=== PATIENT | male | born 1980 | race African-American/Black ===

== ENCOUNTER 2023-03-09 09:05 | Inpatient (IN) | payer MEDICARE, OTHER ==
[~2023-03-09] VITALS: Ht 188 cm; Wt 94.8 kg
[2023-03-09] MEDS ORDERED: DIPHENHYDR50 MG/1 M1 IV (09:40)
[2023-03-09] MEDS ORDERED: ONDANSETRON4 MG/2 ML IV (09:41)
[2023-03-09] MEDS ORDERED: HYDMOR4 PO (09:42)
[2023-03-09] MEDS ORDERED: Calphron667 MG PO (09:43)
[2023-03-09] MEDS ORDERED: NUMBCREAM38 GM TOP (09:43)
[2023-03-09 10:34] LABS: BASOPHILS ABSOLUTE AUTO 0.01 K/mm3 (0.00-0.23); BASOPHILS PERCENT AUTO 0 % (0-2); EOSINOPHILS ABSOLUTE AUTO 0.05 K/mm3 (0.00-0.68); EOSINOPHILS PERCENT AUTO 1 % (0-6); Hematocrit 46.1 % (37.0-53.0); Hemoglobin 14.2 g/dL (13.5-17.5); IMMATURE GRAN ABSOLUTE AUTO 0.01 K/mm3 (0.00-0.10); IMMATURE GRAN PERCENT AUTO 0 % (0-1); LYMPHOCYTES ABSOLUTE AUTO 1.06 K/mm3 (0.84-5.20); LYMPHOCYTES PERCENT AUTO 27 % (21-46); MONOCYTES ABSOLUTE AUTO 0.21 K/mm3 (0.16-1.47); MONOCYTES PERCENT AUTO 5 % (4-13); Mean Corpuscular HGB 22.6 pg (26.0-34.0); Mean Corpuscular HGB Conc 30.8 g/dL (31.5-36.5); Mean Corpuscular Volume 73 fL (80-100); NEUTROPHILS ABSOLUTE AUTO 2.55 K/mm3 (1.96-9.15); NEUTROPHILS PERCENT AUTO 66 % (41-73); Platelet Count 117 K/mm3 (150-400); RDW Coefficient Variation 18.9 % (11.7-14.2); RDW Standard Deviation 46.3 fL (35.1-46.3); Red Blood Cell Count 6.28 M/mm3 (4.30-5.90); White Blood Cell Count 3.89 K/mm3 (4.00-11.30)
[2023-03-09 11:51] LABS: International Normalized Ratio 1.04; Prothrombin Time Results 10.9 Sec (9.7-11.5)
[2023-03-09 12:26] LABS: Magnesium, Blood 2.8 mg/dL (1.6-2.4)
[2023-03-09 13:03] LABS: Albumin/Globulin Ratio 1.2 (0.8-1.8); Bilirubin, Total 0.6 mg/dL (0.1-1.0); Calcium, Blood 7.1 mg/dL (8.5-10.1); Creatinine, Blood 17.6 mg/dL (0.60-1.20); Globulin, Blood 3.4 g/dL (2.2-4.0); Phosphorus, Blood 10.5 mg/dL (2.5-4.9); Potassium, Blood 4.8 mmol/L (3.5-5.5); Total Protein, Blood 7.4 g/dL (6.4-8.2)
[2023-03-09 17:30] VITALS: BP 118/80
[2023-03-09] MEDS ORDERED: TOUJEO MAX300 UNIT/2 SC (17:41)
--- NOTE | 2023-03-09 18:53 | NUR ---
PT ARRIVED TO THE UNIT VIA WHEELCHAIR. ORIENTED TO THE ROOM, PROVIDED WATER AND CRACKERS, DINNER WAS ORDERED. AT BEDSIDE.
[2023-03-09 19:07] VITALS: BP 130/76
[2023-03-10] VITALS (24 sets, daily range): BP systolic 89–149; BP diastolic 70–101
--- NOTE | 2023-03-10 06:04 | NUR ---
SUMMARY: PT A/OX4, IS PLEASANT AND COOPERATIVE W/CARE AND CALLS APPROPRIATELY FOR ASSIST. HE'S UP INDEPENDENTLY IN ROOM AND USES URINAL AD BÁRBARA. PT APPEARS WITHDRAWN W/A FLAT AFFECT BUT HE ADMITTED TO HAVING ANXIETY AND FEAR RE: INABILITY TO HAVE DIALYSIS SINCE THURSDAY. HE REPORTS ABILITY TO FEEL THE EFFECTS AND KNOWLEGE OF "TOXINS ACCUMULATING" LEADING TO "STRESS AND WORRY". HE ALSO C/O URTICARIA, R.LEG PAIN FROM CLOTTED HD GRAFT AND DIFFICULTY SLEEPING. MADE AWARE W/PRN BENEDRYL AND PO DILAUDID RX'D AND RECIEVED. PT APPEARS TO HAVE CALMED SOME AND WAS OBSERVED RESTING OFF/ON. HE'S BEEN NPO SINCE [facility] FOR PROBABLE TEMP DIALYSIS CATH PLACEMENT AND T/F TO [facility] FOR POSSIBLE SURGICAL REVISION OF HIS R.FEMORAL GRAFT IS PENDING BED AVAILABILITY. NO ACUTE CHANGES, VSS/AFEBRILE. WCTM AND REPORT TO DAY RN.
[2023-03-10 07:48] LABS: BASOPHILS ABSOLUTE AUTO 0.01 K/mm3 (0.00-0.23); BASOPHILS PERCENT AUTO 0 % (0-2); EOSINOPHILS ABSOLUTE AUTO 0.07 K/mm3 (0.00-0.68); EOSINOPHILS PERCENT AUTO 1 % (0-6); Hematocrit 43.2 % (37.0-53.0); Hemoglobin 13.5 g/dL (13.5-17.5); IMMATURE GRAN ABSOLUTE AUTO 0.01 K/mm3 (0.00-0.10); IMMATURE GRAN PERCENT AUTO 0 % (0-1); LYMPHOCYTES ABSOLUTE AUTO 1.79 K/mm3 (0.84-5.20); LYMPHOCYTES PERCENT AUTO 32 % (21-46); MONOCYTES ABSOLUTE AUTO 0.43 K/mm3 (0.16-1.47); MONOCYTES PERCENT AUTO 8 % (4-13); Mean Corpuscular HGB 22.8 pg (26.0-34.0); Mean Corpuscular HGB Conc 31.3 g/dL (31.5-36.5); Mean Corpuscular Volume 73 fL (80-100); NEUTROPHILS ABSOLUTE AUTO 3.24 K/mm3 (1.96-9.15); NEUTROPHILS PERCENT AUTO 58 % (41-73); Platelet Count 121 K/mm3 (150-400); RDW Coefficient Variation 18.5 % (11.7-14.2); RDW Standard Deviation 45.5 fL (35.1-46.3); Red Blood Cell Count 5.93 M/mm3 (4.30-5.90); White Blood Cell Count 5.55 K/mm3 (4.00-11.30)
[2023-03-10 08:05] LABS: Albumin, Blood 3.5 g/dL (3.4-5.0); Albumin/Globulin Ratio 0.9 (0.8-1.8); Bilirubin, Total 0.6 mg/dL (0.1-1.0); Calcium, Blood 6.7 mg/dL (8.5-10.1); Potassium, Blood 5.3 mmol/L (3.5-5.5); Total Protein, Blood 7.5 g/dL (6.4-8.2)
[2023-03-10 08:08] LABS: Bun/Creatinine Ratio 3.1 (12.0-20.0); Creatinine, Blood 18.4 mg/dL (0.60-1.20)
--- NOTE | 2023-03-10 10:14 | NUR ---
ASSUMED CARE OF PT. PT TAKEN TO [facility] VIA HOSPITAL BED FOR SCHEDULED PROCEDURE. PT OUT OF ROOM.
--- NOTE | 2023-03-10 17:41 | NUR ---
PT A&O X4 AND CALLS APPROPRIATELY. PT RECEIVED A LEFT FEMORAL DIALYSIS CATHETER TODAY, AND RECEIVED DIALYSIS TREATMENT. NO ACUTE EVENTS AT THIS TIME. PT AND FAMILY INFORMED ME OF AN ALLERGY NOT ON DOCUMENTED LIST, ADDED TOMATOES TO ALLERGY LIST. VSS. PT LEFT IN A POSITION OF SAFETY.
[2023-03-11 03:10] VITALS: BP 122/83
--- NOTE | 2023-03-11 05:37 | NUR ---
SUMMARY: PT A/OX4, IS INDEPENDENT IN ROOM AND CALLS APPROPRIATELY TO SPECIFY NEEDS. TEMPORARY FEMORAL DIALYSIS CATH AND DX ARE INTACT TO L.[facility]. HE REPORTS FEELING "WIPED OUT BUT BETTER AFTER FINALLY RECIEVING DIALYSIS". BILAT LEG AND BACK PAIN PERSIST BUT PRN DILAUDID WAS RECIEVED FOR TOLERABLE RELIEF. HE C/O ITCHING AND DIFFICULTY SLEEPING WELL W/IV BENEDRYL PROVIDED FOR GOOD EFFECT. RENAL DIET COMMENCED AND NEXT DIALYSIS PLANNED FOR THURSDAY. NO ACUTE CHANGES, VSS/AFEBRILE. BED AVAILABILITY AT [facility] STILL PENDING. WCTM AND REPORT TO DAY RN.
[2023-03-11 06:04] LABS: BASOPHILS ABSOLUTE AUTO 0.01 K/mm3 (0.00-0.23); BASOPHILS PERCENT AUTO 0 % (0-2); EOSINOPHILS ABSOLUTE AUTO 0.05 K/mm3 (0.00-0.68); EOSINOPHILS PERCENT AUTO 1 % (0-6); Hematocrit 40.9 % (37.0-53.0); Hemoglobin 12.8 g/dL (13.5-17.5); IMMATURE GRAN ABSOLUTE AUTO 0.01 K/mm3 (0.00-0.10); IMMATURE GRAN PERCENT AUTO 0 % (0-1); LYMPHOCYTES ABSOLUTE AUTO 0.95 K/mm3 (0.84-5.20); LYMPHOCYTES PERCENT AUTO 26 % (21-46); MONOCYTES ABSOLUTE AUTO 0.26 K/mm3 (0.16-1.47); MONOCYTES PERCENT AUTO 7 % (4-13); Mean Corpuscular HGB 22.4 pg (26.0-34.0); Mean Corpuscular HGB Conc 31.3 g/dL (31.5-36.5); Mean Corpuscular Volume 72 fL (80-100); NEUTROPHILS ABSOLUTE AUTO 2.41 K/mm3 (1.96-9.15); NEUTROPHILS PERCENT AUTO 65 % (41-73); Platelet Count 112 K/mm3 (150-400); RDW Coefficient Variation 17.6 % (11.7-14.2); RDW Standard Deviation 43.3 fL (35.1-46.3); Red Blood Cell Count 5.71 M/mm3 (4.30-5.90); White Blood Cell Count 3.69 K/mm3 (4.00-11.30)
[2023-03-11 07:09] LABS: Albumin, Blood 3.3 g/dL (3.4-5.0); Albumin/Globulin Ratio 0.9 (0.8-1.8); Bilirubin, Total 0.5 mg/dL (0.1-1.0); Bun/Creatinine Ratio 2.7 (12.0-20.0); Creatinine, Blood 15.4 mg/dL (0.60-1.20); Globulin, Blood 3.8 g/dL (2.2-4.0); Potassium, Blood 4.3 mmol/L (3.5-5.5); Total Protein, Blood 7.1 g/dL (6.4-8.2)
[2023-03-11 07:50] VITALS: BP 120/84
[2023-03-11 15:54] VITALS: BP 127/89
--- NOTE | 2023-03-11 17:36 | NUR ---
SHIFT SUMMARY PT IN BED THROUGH THE DAY IN [place] POSITION TO EAT AND WATCH TV. DRESSING INTACT TO L GROIN CATHETER. MEDICATED FOR PAIN THIS EVENING AND BENEDRYL GIVEN FOR ANXIETY. AWAITING BED AT [facility] FOR [facility]BRA TRANSFER TO HAVE RLE GRAFT DECLOTTED.
[2023-03-11 19:33] VITALS: BP 123/75
[2023-03-12] VITALS (16 sets, daily range): BP systolic 112–161; BP diastolic 31–94
--- NOTE | 2023-03-12 04:20 | NUR ---
SHIFT SUMMARY NO ACUTE CHANGES. PT A&O X3-4. PT IS ABLE TO MAKE HIS NEEDS KNOWN AND CALLS APPROPRIATELY. NO C/O PAIN AT THIS TIME. PT C/O ANXIETY-MEDICATED X2 THIS SHIFT PER EMAR. CHARGED PT PHONE AND TABLET. DENIES CHEST PAIN/PRESSURE/TIGHTNESS. BED IS LOCKED IN THE LOWEST POSITION WITH CALL LIGHT IN REACH. NO S/S OF DISTRESS NOTED.
[2023-03-12 06:24] LABS: Albumin, Blood 3.2 g/dL (3.4-5.0); Anion Gap 13 mmol/L (6-16); Blood Urea Nitrogen 49 mg/dL (8-24); Bun/Creatinine Ratio 2.7 (12.0-20.0); CO2, Blood 25 mmol/L (21-32); Calcium, Blood 6.6 mg/dL (8.5-10.1); Chloride, Blood 105 mmol/L (98-108); Glomerular Filtration Rate 3 (60-); Glucose, Blood 188 mg/dL (70-99); Phosphorus, Blood 10.5 mg/dL (2.5-4.9); Potassium, Blood 4.4 mmol/L (3.5-5.5); Sodium, Blood 143 mmol/L (136-145)
--- NOTE | 2023-03-12 11:12 | NUR ---
DIALYSIS PORT IN [facility] IS INTACT. CLEAR OCCLUSIVE DRESSING INTACT & APPEARS CLEAN. PT IS COMPLIANT WITH KEEPING LEG STRAIGHT.
--- NOTE | 2023-03-12 13:10 | NUR ---
RETURN FROM DIALYSIS PT RETURNED FROM DIALYSIS VIA BED TRANSFER AT 1255. SET UP FOR LUNCH, BG 70. MEDS GIVEN AND ENCOURAGED PT TO EAT. PT IS EATING CRACKERS FROM HOME AND STARTED ON LUNCH TRAY. AT BEDSIDE. PT REQUESTED DR. FREEMAN TO COME S/W HIS . PLACED CALL TO DR. FREEMAN. HERE.
--- NOTE | 2023-03-12 13:57 | NUR ---
RECEHCKED BG AFTER LUNCH. BG BACK UP TO 180.
--- NOTE | 2023-03-12 18:40 | NUR ---
SHIFT SUMMARY A&O X 4, VSS. IS PLEASANT & COOPERATIVE WITH ALL CARE. REBEKAH DIALYSIS WELL THIS AM. MEDICATED FOR C/O PAIN PER EMAR WITH GOOD RELIEF STATED BY PT. BENADRYL GIVEN PER EMAR UPON PT REQUEST. APPETITE IS OK. BLOOD SUGARS COVERED PER INSULIN COVERGAE ORDERS. L GROIN DIALYSIS CATHETER C/D/I. PT KEEPING LEG STRAIGHT. FAMILY IN TO VISIT TODAY. PLAN IS FOR TRANSFER TO FACILITY FOR VASCULAR REOPENING OF R LEG DIALYSIS [facility].
--- NOTE | 2023-03-12 22:23 | NUR ---
LUIS TRANSFER CALLED [facility] CALLED FOR AN UPDATE ABOUT POSSIBLE BED AT [facility] IN [place]-CURRENTLY OVER CAPACITY BUT THEY WILL BE REASSESSING IN THE MORNING AND SHOULD CALL BACK WITH UPDATE 02/10/23 SOMETIME AFTER 0900.
--- NOTE | 2023-03-13 04:38 | NUR ---
SHIFT SUMMARY NO ACUTE CHANGES THIS SHIFT. PATIENT IS OF WITHDRAWN AFFECT. CALLS APPROPRIATELY AND IS ABLE TO MAKE HIS NEEDS KNOWN. PATIENT IS PLEASANT AND COOPERATIVE WITH CARE PROVIDED. PATIENT HAD HALF A SANDWHICH FOR A SNACK LAST NIGHT. LEÓN C/O PAIN-PAIN ASSESSED AND MEDICATER PER EMAR. LEÓN REQUESTED BENADRYL FOR ANXIETY-MEDICATED PER EMAR. BED IS LOCKED IN THE LOWEST POSITION WITH CALL LIGHT IN REACH FOR SAFETY. NO S/S OF DISTRESS NOTED AT THIS TIME.
[2023-03-13 05:32] VITALS: BP 122/85
[2023-03-13 06:27] LABS: Albumin, Blood 3.2 g/dL (3.4-5.0); Anion Gap 9 mmol/L (6-16); Blood Urea Nitrogen 33 mg/dL (8-24); CO2, Blood 28 mmol/L (21-32); Calcium, Blood 6.8 mg/dL (8.5-10.1); Chloride, Blood 104 mmol/L (98-108); Glucose, Blood 142 mg/dL (70-99); Potassium, Blood 4.7 mmol/L (3.5-5.5); Sodium, Blood 141 mmol/L (136-145)
[2023-03-13 06:29] LABS: Bun/Creatinine Ratio 2.2 (12.0-20.0); Glomerular Filtration Rate 4 (60-); Phosphorus, Blood 8.7 mg/dL (2.5-4.9)
[2023-03-13 07:26] VITALS: BP 125/88
[2023-03-13 16:14] VITALS: BP 119/80
[2023-03-13 17:58] VITALS: BP 119/80
--- NOTE | 2023-03-13 18:23 | NUR ---
SHIFT SUMMARY PATIENT ALERT AND INTERACTIVE. MORE TALKATIVE AND SOCIAL WHEN HIS IS PRESENT. PATIENT TO GO TO [place] TO HAVE FEMORAL DIALYSIS GRAFT DECLOTTED. REPORT CALLED TO BEATRIZ WASHBURN. Marcel FEMORAL VAS CATH IN PLACE. PATIENT BATHED BY . DRESSING REMOVED FROM NECK WHERE AN ATTEMPT TO PLACE AN IJ PREVIOUSLY. NOTIFIED OF TRANSFER IN PROGRESS. PATIENT WELL EDUCATED ON UPCOMING PROCEDURES AND PROCESS. PATIENT EAGER TO GET ACCESS OBTAINED AND RETURN TO PREVIOUS ACTIVITY LEVEL.
[2023-03-13 19:54] VITALS: BP 129/88
--- NOTE | 2023-03-13 21:12 | NUR ---
PATIENT TRANSFERED. PATIENT TRANSFERED WITH [facility] TO [facility] IN [place] VIA GURNEY. CALLED NURSE AT [facility] AND NOTIFIED PATIENT HAS LEFT [facility] AND IS IN TRANSIT TO THEM.
== END 2023-03-13 21:00 | disposition short-term general hospital (02) | DRG 314 ==
LOC: ER 09:05 → MEDS 09:06
PROVIDERS: Emergency Medicine; Family Medicine; Hospitalist; ADMIT Internal Medicine
PROC: B51 Imaging, Veins, Fluoroscopy (ICD-10-PCS; 2023-03-09)
PROC: 5A1D70Z Performance of Urinary Filtration, Intermittent, Less than 6 Hours Per Day (ICD-10-PCS; principal; 2023-03-10)
PROC: 06H033Z Insertion of Infusion Device into Inferior Vena Cava, Percutaneous Approach (ICD-10-PCS; 2023-03-10)
PROC: B549ZZA Ultrasonography of Inferior Vena Cava, Guidance (ICD-10-PCS; 2023-03-10)
DX: T82.868A Thrombosis due to vascular prosthetic devices, implants and grafts, initial encounter (principal); N18.6 End stage renal disease; I12.0 Hypertensive chronic kidney disease with stage 5 chronic kidney disease or end stage renal disease; Y83.8 Other surgical procedures as the cause of abnormal reaction of the patient, or of later complication, without mention of misadventure at the time of the procedure; E83.39 Other disorders of phosphorus metabolism; E10.649 Type 1 diabetes mellitus with hypoglycemia without coma; F41.9 Anxiety disorder, unspecified; G89.29 Other chronic pain; E10.22 Type 1 diabetes mellitus with diabetic chronic kidney disease; F31.9 Bipolar disorder, unspecified; D50.9 Iron deficiency anemia, unspecified; D63.1 Anemia in chronic kidney disease; Z88.5 Allergy status to narcotic agent; Z88.8 Allergy status to other drugs, medicaments and biological substances; Z99.2 Dependence on renal dialysis
CPT/HCPCS: 36415; 76882; 76937; 80053; 80069; 82947; 83036; 83735; 84100; 85025; 85610; 93990; 96374; 96376; 99152; 99153; 99284-25; A9270; C1750; C1769; C1887; C1894; G0378; J1200; J1644; J1815; J2250; J3010; J7030; J7040; Q9967

== ENCOUNTER 2023-06-03 09:13 | Day surgery (SDC) | payer MEDICARE, OTHER ==
[2023-06-03] VITALS (9 sets, daily range): BP systolic 144–182; BP diastolic 87–128
[~2023-06-03] VITALS: Ht 188 cm; Wt 93.0 kg
[~2023-06-03 09:13] MED LIST: Calphron667 MG PO; DIPHENHYDR50 MG/1 M1 IV; HYDMOR4 PO; NUMBCREAM38 GM TOP; ONDANSETRON4 MG/2 ML IV; TOUJEO MAX300 UNIT/2 SC
--- NOTE | 2023-06-03 14:53 | NUR ---
CBG RECHECK OF 114. PT. D5 INFUSION PLACED ON STAND BY PER DR. VITAL. PT REMAINS, SLEEPING IN SUPINE POSITION. AWAKENS TO VERBAL STIMULI. VSS AT THIS TIME.
[2023-06-03 15:28] LABS: Bun/Creatinine Ratio 3.7 (12.0-20.0); Calcium, Blood 5.7 mg/dL (8.5-10.1); Creatinine, Blood 18.7 mg/dL (0.60-1.20)
--- NOTE | 2023-06-03 15:30 | NUR ---
PT ASSISTED TO SIT UP IN BED, SITE REMAINS UNCHANGED, AWAITING LAB RESULTS.
--- NOTE | 2023-06-03 15:35 | NUR ---
LAB CALLED TO RESULT CRICAL LAB VALUES, DR. KITCHEN NOTIFIED OF CRITICAL LABS. SRINATH CALLED TO ASK FOR STAT CHAIR FOR PATIENT FOR DIALSYIS SEAN. DR. KITCHEN SPOKE WITH [facility] NURSE, CHAIR READY FOR PATIENT AND IF COMPLICATIONS WITH ACCESS DR. KITCHEN TO ASSIST WITH ACCESS SO PT COULD RECIEVE DIALYSIS SEAN. PT. IV REMOVED, CATHETER INTACT. PT. ASSISTED TO GET DRESSED SITE REMAINS UNCHANGED. PT ALERT AND ORIENTED, PROVIDED WITH SNACKS, AND ASSISTED TO EXIT, PT TO DRIVE PT TO DIALYSIS AT THIS TIME. PT VSS PRIOR TO DEPARTURE. DISCHARGE INSTRUCTIONS REGARDING SUTURE REMOVAL DISCUSSE WITH PT AND PT .
== END 2023-06-03 16:23 | disposition home or self-care (01) ==
LOC: MHTC 09:13
PROVIDERS: Radiology Diagnostic Radiology
DX: T82.590A Other mechanical complication of surgically created arteriovenous fistula, initial encounter (principal); I12.0 Hypertensive chronic kidney disease with stage 5 chronic kidney disease or end stage renal disease; N18.6 End stage renal disease; G47.33 Obstructive sleep apnea (adult) (pediatric); N25.81 Secondary hyperparathyroidism of renal origin; F17.210 Nicotine dependence, cigarettes, uncomplicated; Z88.8 Allergy status to other drugs, medicaments and biological substances; Z99.2 Dependence on renal dialysis; Z99.89 Dependence on other enabling machines and devices; Z98.890 Other specified postprocedural states; Z90.89 Acquired absence of other organs; Y83.8 Other surgical procedures as the cause of abnormal reaction of the patient, or of later complication, without mention of misadventure at the time of the procedure
CPT/HCPCS: 76937; 80048; 82947; 85347; 99152; 99153; C1725; C1757; C1769; C1887; C1894; J1644; J2250; J3010; J7030; J7042; Q9967

== ENCOUNTER 2023-06-05 16:33 | Inpatient (IN) | payer MEDICARE, OTHER ==
[~2023-06-05] VITALS: Ht 188 cm; Wt 100.4 kg
[2023-06-05 17:58] LABS: BASOPHILS ABSOLUTE AUTO 0.01 K/mm3 (0.00-0.23); BASOPHILS PERCENT AUTO 0 % (0-2); EOSINOPHILS ABSOLUTE AUTO 0.09 K/mm3 (0.00-0.68); EOSINOPHILS PERCENT AUTO 2 % (0-6); Hematocrit 43.3 % (37.0-53.0); IMMATURE GRAN ABSOLUTE AUTO 0.01 K/mm3 (0.00-0.10); IMMATURE GRAN PERCENT AUTO 0 % (0-1); LYMPHOCYTES ABSOLUTE AUTO 0.75 K/mm3 (0.84-5.20); LYMPHOCYTES PERCENT AUTO 15 % (21-46); MONOCYTES ABSOLUTE AUTO 0.27 K/mm3 (0.16-1.47); MONOCYTES PERCENT AUTO 6 % (4-13); Mean Corpuscular HGB 24.7 pg (26.0-34.0); Mean Corpuscular HGB Conc 32.3 g/dL (31.5-36.5); Mean Corpuscular Volume 76 fL (80-100); NEUTROPHILS ABSOLUTE AUTO 3.79 K/mm3 (1.96-9.15); NEUTROPHILS PERCENT AUTO 77 % (41-73); Platelet Count 96 K/mm3 (150-400); RDW Coefficient Variation 18.6 % (11.7-14.2); RDW Standard Deviation 50.1 fL (35.1-46.3); Red Blood Cell Count 5.67 M/mm3 (4.30-5.90); White Blood Cell Count 4.92 K/mm3 (4.00-11.30)
[2023-06-05 18:29] LABS: Albumin, Blood 3.3 g/dL (3.4-5.0); Albumin/Globulin Ratio 0.8 (0.8-1.8); Bilirubin, Total 0.6 mg/dL (0.1-1.0); Bun/Creatinine Ratio 2.8 (12.0-20.0); Calcium, Blood 6.1 mg/dL (8.5-10.1); Creatinine, Blood 16.6 mg/dL (0.60-1.20); Globulin, Blood 4.1 g/dL (2.2-4.0); Potassium, Blood 5.9 mmol/L (3.5-5.5); Total Protein, Blood 7.4 g/dL (6.4-8.2)
[2023-06-05 20:44] LABS: International Normalized Ratio 1.04; Prothrombin Time Results 10.9 Sec (9.7-11.5)
[2023-06-05] MEDS ORDERED: Sodium Zirconium Cyclosilicate 10 GM Packet PO ONE (21:20)
[2023-06-05] MEDS ORDERED: Ondansetron HCl 2 MG / ML 2ML Vial IV PRN (22:35)
[2023-06-05] MEDS ORDERED: FLU VACC QS2023-24(6MOS UP)/PF 60 MCG/0.5 ML SYRINGE IM ONE (22:35)
[2023-06-05 22:43] LABS: Magnesium, Blood 2.2 mg/dL (1.6-2.4)
[2023-06-05] MEDS ORDERED: Heparin Sodium,Porcine 5,000 UNIT/0.5 ML SDV SC SCH (23:00)
[2023-06-06] VITALS (8 sets, daily range): BP systolic 149–166; BP diastolic 95–109
--- NOTE | 2023-06-06 01:34 | NUR ---
TRANSFER NOTE THIS RN RECEIVED REPORT FROM MIMA RN IN THE ED. PT TRANSFERRED TO PCU 7 AT 0115. PT A&O X4. ABLE TO MAKE NEEDS KNOWN. HTN NOTED. AFEBRILE. ON RA WITH SPO2 >92%. SB/SR ON MONITOR WITH HR 50-60'S. PT IND WALKING IN ROOM AND WITH ADL'S. STATES THAT HE DOES NOT VOID. LAST DIALYSIS ON THURSDAY PER PT. RT THIGH DIALYSIS SITE WITH X2 SUTURES IN PLACE. LUCINA. HOME PAIN MEDICATION ORDERED PER MD MILLER. BED IN LOWEST POSITION AND CALL LIGHT WITHIN REACH.
[2023-06-06] MEDS ORDERED: HYDROmorphone HCl 4 MG Tab PO PRN (01:40)
[2023-06-06] MEDS ORDERED: Melatonin 5 MG Tablet PO PRN (01:40)
[2023-06-06 04:05] LABS: BASOPHILS ABSOLUTE AUTO 0.01 K/mm3 (0.00-0.23); BASOPHILS PERCENT AUTO 0 % (0-2); EOSINOPHILS ABSOLUTE AUTO 0.09 K/mm3 (0.00-0.68); EOSINOPHILS PERCENT AUTO 2 % (0-6); Hematocrit 38.5 % (37.0-53.0); Hemoglobin 12.5 g/dL (13.5-17.5); IMMATURE GRAN PERCENT AUTO 0 % (0-1); LYMPHOCYTES PERCENT AUTO 25 % (21-46); MONOCYTES ABSOLUTE AUTO 0.25 K/mm3 (0.16-1.47); MONOCYTES PERCENT AUTO 6 % (4-13); Mean Corpuscular HGB 24.8 pg (26.0-34.0); Mean Corpuscular HGB Conc 32.5 g/dL (31.5-36.5); Mean Corpuscular Volume 76 fL (80-100); NEUTROPHILS ABSOLUTE AUTO 2.65 K/mm3 (1.96-9.15); NEUTROPHILS PERCENT AUTO 66 % (41-73); Platelet Count 88 K/mm3 (150-400); RDW Coefficient Variation 18.2 % (11.7-14.2); Red Blood Cell Count 5.04 M/mm3 (4.30-5.90)
[2023-06-06 04:45] LABS: Albumin, Blood 3.1 g/dL (3.4-5.0); Albumin/Globulin Ratio 0.9 (0.8-1.8); Bilirubin, Total 0.4 mg/dL (0.1-1.0); Bun/Creatinine Ratio 2.8 (12.0-20.0); Calcium, Blood 5.9 mg/dL (8.5-10.1); Creatinine, Blood 17.9 mg/dL (0.60-1.20); Globulin, Blood 3.6 g/dL (2.2-4.0); Potassium, Blood 4.6 mmol/L (3.5-5.5); Total Protein, Blood 6.7 g/dL (6.4-8.2)
[2023-06-06] MEDS ORDERED: Calcium Carbonate 500 MG Tab Chew PO SCH (05:05)
[2023-06-06] MEDS ORDERED: Calcium Gluconate 10% 1,000 MG in NS 50 ML IV ONE (05:05)
[2023-06-06] MEDS ORDERED: Calcitriol 0.25 MCG Cap PO SCH (05:05)
[2023-06-06] MEDS ORDERED: FentaNYL Citrate 50 MCG/ML 2 ML Injection IV PRN (05:35)
--- NOTE | 2023-06-06 05:51 | NUR ---
SHIFT SUMMARY CONSULT CALLED IN FOR MD WINCHESTER. CRITICAL LABS REPORTED TO MD WINCHESTER. MD WINCHESTER WITH ORDERS TO CONSULT MD HAIDER FOR CLOGGED DIALYSIS ACCESS. ORDERS TO MEDICATE FOR LOW CALCIUM; MEDICATED PER EMAR. CONSULT CALLED IN FOR VITALY. OTHERWISE NO CHANGES SINCE ARRIVAL TO UNIT. SEE PREVIOUS NOTE. VSS. PT CALLING APPROPRIATELY. INDEPENDENT WITH ADL'S. BED IN LOWEST POSITION AND CALL LIGHT WITHIN REACH. THIS RN WILL REPORT TO ONCOMING ANA PAULA RN.
[2023-06-06] MEDS ORDERED: Calcium Acetate 667 MG Gel Cap PO SCH (08:30)
[2023-06-06] MEDS ORDERED: Insulin Glargine-Yfgn 100 Unit/mL 3 ML SYR SC SCH (09:00)
[2023-06-06] MEDS ORDERED: Sodium Zirconium Cyclosilicate 10 GM Packet PO SCH (09:00)
--- NOTE | 2023-06-06 10:00 | NUR ---
AM NOTES; PT COOPERATIVE WITH CARES, FLAT AND WITHDRAWN, NEEDS MOTIVATION. CAN GET IRRITATED AT TIMES, ABLE TO MAKE NEEDS KNOWN. VITALS HRR HAS BEEN SINUS BRADYCARDIA PT TOUCHES 36-37 PER TELE AND IS WHEN PT IS ASLEEP PT DID REPORT HE HAS SLEEP APNEA AND HAS CPAP AT HOME AND DOESNT USE, PROVIDER CALLED AND MADE AWARE, ORDER FOR VBG PLACED AND CPAP PER PROTOCOL, PT AGREED FOR CPAP USE AHEN SLEEPING, SBP 150'S, SATS ABOVE 95% ON RA, AFEBRILE. PT DENIES ANY CHEST PAIN/PRESSURE/DISCOMFORT. CBG WAS LOW AT 52 THIS MORNING ATE BREAKFAST WAS AT 107 ON RECHECK. PLAN TO WAIT THURSDAY FOR DIALYSIS ACCESS PLACEMENT PER DR WINCHESTER AND MONITOR LABS. NO OTHER ISSUES ENCOUNTERED CALL LIGHTS HAS BEEN REACH WILL CONTINUE TO MONITOR
[2023-06-06 12:17] LABS: Base Excess Venous -0.7 mmol/L; Bicarbonate Venous 22.5 mmol/L (24.0-30.0); PCO2 Venous 49.8 mmHg (38-42); pH Blood Venous 7.32 (7.34-7.37)
[2023-06-06 13:19] LABS: Bun/Creatinine Ratio 2.8 (12.0-20.0); Calcium, Blood 6.3 mg/dL (8.5-10.1); Creatinine, Blood 18.3 mg/dL (0.60-1.20); Potassium, Blood 5.2 mmol/L (3.5-5.5)
[2023-06-06] MEDS ORDERED: Calcium Carbonate 500 MG Tab Chew PO ONE (14:10)
[2023-06-06] MEDS ORDERED: Insulin Human Lispro 100 Units/ML 3ML Syringe SC SCH (16:30)
--- NOTE | 2023-06-06 18:32 | NUR ---
PT SUMMARY: SEE PREVIOUS NOTE: NO ACUTE CHANGE FOR THE SHIFT, DR WINCHESTER NOTIFIED OF RECENT LABS AND CRITICAL RESULT OF CREA, INSTRUCTED TO CONTINUE TO MONITOR PT AND KEEP LOKELMA DOSE BID, ADDITIONAL DOSE OF TUMS. VITALS HRR SB/SR 40-60'S, CPAP AT THE BEDSIDE PER RT, PT ABLE TO USE WHEN SLEEPING. SATS KEPT ABOVE 95% ON RA, AFEBRILE. SBP ELEVATED AT 150'S DIASTOLIC >100 DR VÁZQUEZ CALLED AND MADE AWARE PROVIDER TO REVIEW PT MEDS AND LABS AWAITNG FOR ORDER AT THIS TIME. PT'S CAME IN TO VISIT WAS UPDATED REGARDING PT'S STATUS AGREEABLE WITH THE PLAN. PT HAD A BEDBATH THIS AFTERNOON WELL, REMAINS INDEPENDENT IN THE ROOM. PT PRODUCE NO URINE, NO REPORTED BM FOR THE SHIFT. PT ABLE TO MAKE NEEDS KNOWN, CALLS APPROPRIATELY, WILL REPORT TO ONCOMING SHIFT
--- NOTE | 2023-06-06 22:02 | NUR ---
HEART RATE MANAGEMENT CALL PLACED TO HOSPITALED D/T PTS HR SUSTAINING 130'S, W/SPIKES TO 150 W/MOVEMENT. CARDIZEM DRIP HAD BEEN D/C'ED AND PO DOSING GIVEN ON PREVIOUS SHIFT. OBTAINED ORDER TO RESTART DRIP, INITIATED @ 2041 W/ 5MLS/HR. DRIP TITRATED TO 10 ML/HR @ 2099. HR AT THIS TIME REMAINS 110-120'S. PT REPORTS IMPROVEMENT IN SOB. BP REMAINS STABLE.
[2023-06-07 03:51] VITALS: BP 163/105
[2023-06-07] MEDS ORDERED: AmLODIPine Besylate 5 MG Tab PO SCH ×2 (04:05→09:00)
[2023-06-07] MEDS ORDERED: HydrALAZINE HCl 20 MG / ML 1ML Vial IV ONE (04:05)
[2023-06-07 04:53] LABS: Hematocrit 42.2 % (37.0-53.0); Hemoglobin 13.7 g/dL (13.5-17.5)
[2023-06-07 05:21] LABS: Magnesium, Blood 2.5 mg/dL (1.6-2.4)
[2023-06-07 05:42] LABS: Albumin, Blood 3.2 g/dL (3.4-5.0); Anion Gap 10 mmol/L (6-16); Blood Urea Nitrogen 56 mg/dL (8-24); Bun/Creatinine Ratio 2.9 (12.0-20.0); CO2, Blood 25 mmol/L (21-32); Calcium, Blood 6.3 mg/dL (8.5-10.1); Chloride, Blood 108 mmol/L (98-108); Glomerular Filtration Rate 3 (60-); Glucose, Blood 68 mg/dL (70-99); Phosphorus, Blood 10.6 mg/dL (2.5-4.9); Potassium, Blood 5.5 mmol/L (3.5-5.5); Sodium, Blood 143 mmol/L (136-145)
[2023-06-07 05:45] VITALS: BP 131/86
--- NOTE | 2023-06-07 06:02 | NUR ---
SHIFT SUMMARY VSS, DR MILLER ORDERED AMLODIPINE AND HYDRALAZINE TO BE GIVEN THIS AM FOR HTN. BP NOTED TO DECREASE. BRADYCARDIA NOTED, PT REMAINS ASYMPTOMATIC. PT SLEPT ON AND OFF T/O THE NIGHT. PT REMAINS ANURIC. NO BM NOTED. PT TOLLERATED PO INTAKE W/O N/V. NO ACUTE EVENTS NOTED. CALL PLACED TO DR. WINCHESTER W/NO ANSWER, CHARGE NOTIFIED OF LABS. PLAN TO UPDATE DOCTOR SOON POSSIBLE. OTHERWISE NO ACUTE EVENTS NOTED. PLAN FOR [facility] TO CONSULT ON THURSDAY.
[2023-06-07 07:26] VITALS: BP 144/85
[2023-06-07] MEDS ORDERED: Sodium Zirconium Cyclosilicate 10 GM Packet PO SCH ×2 (09:00)
[2023-06-07 12:33] VITALS: BP 148/94
[2023-06-07 15:54] VITALS: BP 145/101
--- NOTE | 2023-06-07 15:54 | NUR ---
TRANSFER OF CARE TO MEDICAL FLOOR PT TRANFER TO MEDICAL FLOOR REPORT CALLED TO HAKEEM RN. AOX4 OBEYS COMMANDS AND CALLS APPROPRIATELY. TELE SINUS ALON/RHYTH RATE 50s-60s. PT DENIES CHEST PAIN/PRESSURE. PT SPO2>92% ON RA BREATH EVEN AND NON LABORED. VSS. PT EDUCATED ON POC TO CONSULT IR TOMORROW FOR DIALYSIS ACCESS. PT TRANSPORTED TO MEDICAL FLOOR VIA WHEELCHAIR BY RAMAN PCT WITH PATIENT BELONGINGS. NO ACUTE CHANGES.
--- NOTE | 2023-06-07 16:38 | NUR ---
ASSUMED CARE ASSUMED CARE OF PT AT APPROX 15:50. PT A&OX4, HYPERTENSIVE BUT STABLE/ ASYMPTOMATIC, AMB IND, TOLERATING PO, ANURIA, AND DENIED PAIN. PT HAS HX OF CKD AND IS A DIALYSIS PT. PT ORIENTED TO ROOM AND CALL LIGHT. CALL LIGHT WITHIN REACH AND PT ABLE TO MAKE NEEDS KNOWN.
[2023-06-07] MEDS ORDERED: Dextrose 5% 500 ML IV SCH (17:10)
--- NOTE | 2023-06-07 17:31 | NUR ---
SHIFT SUMMARY PT A&OX4, FLAT AFFECT, VSS, AMB IND, TOLERATING PO, ANURIA, AND DENIED PAIN. PT HYPERTENSIVE, BUT ASYMPTOMATIC. PT HAS NOT HAD DIALYSIS SINCE THU. PER REPORT, PLAN FOR [facility] TO SEE PT TOMORROW. PT'S BLOOD GLUCOSE LOW, ASMPTOMATIC, AND NOTIFIED. ORDERS GIVEN FOR D5 PRN AND Q3H BLOOD GLUCOSE CHECKS. CALL LIGHT WITHIN REACH AND PT ABLE TO MAKE NEEDS KNOWN.
[2023-06-07 19:27] VITALS: BP 152/93
[2023-06-08] VITALS (18 sets, daily range): BP systolic 134–175; BP diastolic 44–110
--- NOTE | 2023-06-08 04:27 | NUR ---
END OF SHIFT SUMMARY PT A&O x4, AFEBRILE, PT WITHDRAWN, AND FLAT AFFECT. PT's RECENT BP WAS 158/71 (MAP 95), AND HR 53 BPM. PT SLIGHTLY IRRITATED WITH CARE STAFF THIS MORNING. PT C/O THOMPSON, ICE PACK GIVEN TO PLACE AT BACK OF NECK. PT DECLINED TAKING ANY MEDICATION FOR THOMPSON. PT ON RA, OXYGEN SAT AT 100%. FLUIDS ENCOURAGED. PRN MELATONIN GIVEN AT 2100 MED PASS. CALL LIGHT WITHIN REACH, WCTM.
[2023-06-08 06:33] LABS: Hematocrit 38.8 % (37.0-53.0); Hemoglobin 12.8 g/dL (13.5-17.5)
[2023-06-08 07:07] LABS: Albumin, Blood 3.1 g/dL (3.4-5.0); Anion Gap 9 mmol/L (6-16); Blood Urea Nitrogen 69 mg/dL (8-24); CO2, Blood 25 mmol/L (21-32); Calcium, Blood 6.6 mg/dL (8.5-10.1); Chloride, Blood 110 mmol/L (98-108); Glucose, Blood 83 mg/dL (70-99); Magnesium, Blood 2.5 mg/dL (1.6-2.4); Potassium, Blood 5.5 mmol/L (3.5-5.5); Sodium, Blood 144 mmol/L (136-145)
[2023-06-08 07:10] LABS: Bun/Creatinine Ratio 3.4 (12.0-20.0); Glomerular Filtration Rate 3 (60-); Phosphorus, Blood 10.7 mg/dL (2.5-4.9)
--- NOTE | 2023-06-08 09:00 | NUR ---
Pt sitting up on the side of the bed awake, a/ox4, cooperative with care, but seems irritated by assesment, took po meds without diff, was in to sign consent for procedure, revision on shunt, lungs are clear t/o, resp even and unlabored, no cough noted, hrr, in the 50's, no edema noted, ppp+1, cap refill <3sec, vs stable, afebrile, piv to obdulia site is clear and patent, btx4, abd flat soft nontender, skin c/w/d, maew, vlad, call light in reach.
[2023-06-08] MEDS ORDERED: Heparin Sodium 1000 Units/ML 10ML MDV ONE ×2 (14:10→15:44)
[2023-06-08] MEDS ORDERED: NS 250 ML IV ONE (14:11)
[2023-06-08] MEDS ORDERED: FentaNYL Citrate 50 MCG/ML 2 ML Injection ONE ×2 (14:48→15:31)
[2023-06-08] MEDS ORDERED: NS 500 ML IV ONE (14:48)
[2023-06-08] MEDS ORDERED: Midazolam HCl 1MG / ML 2ML Vial ONE ×2 (14:48→15:31)
[2023-06-08] MEDS ORDERED: CeFAZolin Sodium 2,000 MG VIAL ONE (15:34)
--- NOTE | 2023-06-08 18:20 | NUR ---
pt had perma cath placed to left femeral, tolerated prcedure. will have dialysis about 2100 tonight, b/p is running high, states it will come down with dialysis. blood sugar was in 50's, gave apple juice and dinner, will recheck. call light in reach.
[2023-06-08] MEDS ORDERED: Dextrose 50% 50 ML Syringe IV PRN (19:00)
[2023-06-08] MEDS ORDERED: DEXTROSE 50% IV PRN (19:00)
--- NOTE | 2023-06-08 19:00 | NUR ---
RECEIVED REPORT FROM ANA PAULA WASHBURN. PT BACK FROM SURGICAL PROC PLACING NEW PERMA CATH. POST OP VITALS STARTED. NO NEEDS AT THIS TIME. LAST CBG 70. WILL CONTINUE TO PROVIDE CARE T/O SHIFT.
[2023-06-08] MEDS ORDERED: Ondansetron HCl 2 MG / ML 2ML Vial IV ONE (20:10)
[2023-06-08] MEDS ORDERED: DiphenhydrAMINE HCl 50 MG/ML 1ML Vial IV ONE (20:10)
[2023-06-08] MEDS ORDERED: FentaNYL Citrate 50 MCG/ML 2 ML Injection IV PRN (21:05)
[2023-06-08] MEDS ORDERED: Anticoagulant Sod Citrate Soln 3 ML SYR INJ PRN (21:20)
--- NOTE | 2023-06-08 22:27 | NUR ---
HD COMPLETED. 2 LITERS OFF. PT TOLERATED WELL PER CUSTOM SHOE DESIGNER AND MAKER. NEXT HD TOMORROW. APPLE JUICE GIVEN TO PT. NO OTHER NEEDS. CALL LT IN REACH.
[2023-06-08] MEDS ORDERED: Dextrose 5% 500 ML IV SCH (23:45)
[2023-06-09] VITALS (19 sets, daily range): BP systolic 119–171; BP diastolic 27–80
--- NOTE | 2023-06-09 00:16 | NUR ---
DEXTROSE 5% INFUSING AT 75 MLS/HR VIA EUGENIA IV SITE TO MANAGE LOW BLOOD SUGAR. PT NOT WANTING TO TAKE ANYTHING PO. CALL LT IN REACH.
--- NOTE | 2023-06-09 02:07 | NUR ---
CBG 78. DEXTROSE 5% INFUSING AT 75 MLS/HR. 97% SATS ON CPAP. WILL CONTINUE TO PROVIDE CARE. CALL LT IN REACH.
--- NOTE | 2023-06-09 04:09 | NUR ---
PT RESTING QUIETLY, O2 SATS 100%. CALL LT IN REACH.
--- NOTE | 2023-06-09 04:31 | NUR ---
SHIFT SUMMARY: NEW PERMA CATH PLACED YESTERDAY, 06/08/23. C/O 01/18 IN BLE. MEDICATED WITH 50 MCG OF FENTANYL WITH FAIR PAIN RELIEF. ON RA. CURRENTLY ON DEXTROSE 5% AT 75 MLS/HR FOR LOW BLOOD SUGAR. CBG'S HAVE BEEN 55, 55, 70, 106, 78, CBG 78 AFTER BEING ON THE DEXTROSE INFUSION. HEMODIALYSIS FOR APPROX. TWO HOURS LAST NIGHT, 2 LITERS TAKEN OFF PER DIALYSIS NURSE. PT TO RECEIVE HD TODAY WELL. PT STATES HE HAS AN APPOINTMENT SCHEDULED AT 1030 FOR DIALYSIS OUTPT AND HOPES TO BE DISCHARGED PRIOR TO HIS APPOINTMENT. PT RESTED WELL T/O THE SHIFT. WILL CONTINUE TO PROVIDE CARE UNTIL SHIFT REPORT TO ONCOMING RN. CALL LT IN REACH.
[2023-06-09 05:53] LABS: BASOPHILS ABSOLUTE AUTO 0.01 K/mm3 (0.00-0.23); BASOPHILS PERCENT AUTO 0 % (0-2); EOSINOPHILS ABSOLUTE AUTO 0.08 K/mm3 (0.00-0.68); EOSINOPHILS PERCENT AUTO 2 % (0-6); Hematocrit 39.2 % (37.0-53.0); Hemoglobin 12.7 g/dL (13.5-17.5); IMMATURE GRAN ABSOLUTE AUTO 0.01 K/mm3 (0.00-0.10); IMMATURE GRAN PERCENT AUTO 0 % (0-1); LYMPHOCYTES ABSOLUTE AUTO 0.93 K/mm3 (0.84-5.20); LYMPHOCYTES PERCENT AUTO 21 % (21-46); MONOCYTES ABSOLUTE AUTO 0.28 K/mm3 (0.16-1.47); MONOCYTES PERCENT AUTO 6 % (4-13); Mean Corpuscular HGB 24.6 pg (26.0-34.0); Mean Corpuscular HGB Conc 32.4 g/dL (31.5-36.5); Mean Corpuscular Volume 76 fL (80-100); NEUTROPHILS PERCENT AUTO 71 % (41-73); Platelet Count 90 K/mm3 (150-400); RDW Coefficient Variation 17.7 % (11.7-14.2); RDW Standard Deviation 48.3 fL (35.1-46.3); Red Blood Cell Count 5.17 M/mm3 (4.30-5.90); White Blood Cell Count 4.51 K/mm3 (4.00-11.30)
--- NOTE | 2023-06-09 06:11 | NUR ---
MEDICATED PT FOR BLE PAIN WITH 25 MCG OF FENTANYL IV WITH FAIR PAIN RELIEF. PT MAINTAINING 02 SATS IN THE MID NINETIES. CALL LT IN REACH.
[2023-06-09 06:41] LABS: Magnesium, Blood 2.3 mg/dL (1.6-2.4)
[2023-06-09 07:18] LABS: Albumin/Globulin Ratio 0.8 (0.8-1.8); Bilirubin, Total 0.6 mg/dL (0.1-1.0); Bun/Creatinine Ratio 3.5 (12.0-20.0); Calcium, Blood 6.5 mg/dL (8.5-10.1); Creatinine, Blood 18.8 mg/dL (0.60-1.20); Globulin, Blood 3.8 g/dL (2.2-4.0); Potassium, Blood 6.2 mmol/L (3.5-5.5); Total Protein, Blood 6.8 g/dL (6.4-8.2)
[2023-06-09] MEDS ORDERED: Anticoagulant Sod Citrate Soln 3 ML SYR INJ PRN (08:25)
[2023-06-09] MEDS ORDERED: Ondansetron HCl 2 MG / ML 2ML Vial IV PRN (08:30)
[2023-06-09] MEDS ORDERED: DiphenhydrAMINE HCl 50 MG/ML 1ML Vial IV PRN (08:30)
[2023-06-09] MEDS ORDERED: Sodium Zirconium Cyclosilicate 10 GM Packet PO SCH (09:00)
--- NOTE | 2023-06-09 16:15 | NUR ---
1610- PT BROUGHT DOWN IN WC BY MARCUS CAMARA. PT IN STABLE CONDITION AND LEFT WITH ALL BELONGINGS.
== END 2023-06-09 16:15 | disposition home or self-care (01) | DRG 314 ==
LOC: ER 16:33 → ERHOLD 16:34 → ER 16:34 → PCU 16:34 → ERHOLD 06-06 01:13 → PCU 06-06 01:13 → MEDS 06-06 11:41 → PCU 06-06 11:41 → ERHOLD 06-07 11:41 → PCU 06-07 11:41 → MEDS 06-07 15:48
PROVIDERS: Family Medicine; Internal Medicine Nephrology; Physician Assistant; Student in an Organized Health Care Education/Training Program; ADMIT Internal Medicine
PROC: 0JHM3XZ Insertion of Tunneled Vascular Access Device into Left Upper Leg Subcutaneous Tissue and Fascia, Percutaneous Approach (ICD-10-PCS; principal; 2023-06-08)
PROC: 06H033Z Insertion of Infusion Device into Inferior Vena Cava, Percutaneous Approach (ICD-10-PCS; 2023-06-08)
PROC: B5191ZA Fluoroscopy of Inferior Vena Cava using Low Osmolar Contrast, Guidance (ICD-10-PCS; 2023-06-08)
DX: T82.868A Thrombosis due to vascular prosthetic devices, implants and grafts, initial encounter (principal); N18.6 End stage renal disease; N25.81 Secondary hyperparathyroidism of renal origin; I12.0 Hypertensive chronic kidney disease with stage 5 chronic kidney disease or end stage renal disease; T82.590A Other mechanical complication of surgically created arteriovenous fistula, initial encounter; Z99.2 Dependence on renal dialysis; E87.5 Hyperkalemia; E11.22 Type 2 diabetes mellitus with diabetic chronic kidney disease; E83.51 Hypocalcemia; E88.09 Other disorders of plasma-protein metabolism, not elsewhere classified; D63.1 Anemia in chronic kidney disease; E87.70 Fluid overload, unspecified; E83.39 Other disorders of phosphorus metabolism; E11.649 Type 2 diabetes mellitus with hypoglycemia without coma; Z28.21 Immunization not carried out because of patient refusal; G47.33 Obstructive sleep apnea (adult) (pediatric); F17.210 Nicotine dependence, cigarettes, uncomplicated; Z88.8 Allergy status to other drugs, medicaments and biological substances; Z99.89 Dependence on other enabling machines and devices; Z98.890 Other specified postprocedural states; Z90.89 Acquired absence of other organs; Y83.8 Other surgical procedures as the cause of abnormal reaction of the patient, or of later complication, without mention of misadventure at the time of the procedure
CPT/HCPCS: 36415; 36558; 76937; 77001; 80048; 80053; 80069; 82803; 82947; 83735; 84100; 85014; 85018; 85025; 85347; 85610; 93005; 93010; 94660; 94762; 96365; 96372; 96375; 99152; 99153; 99285-25; A9270; C1725; C1750; C1757; C1769; C1887; C1894; G0378; J0360; J0612; J0690; J1200; J1644; J1815; J2250; J2405; J3010; J7030; J7040; J7042; J7050; J7060; Q9967

== ENCOUNTER 2024-04-18 08:26 | Day surgery (SDC) | payer MEDICARE, OTHER ==
[~2024-04-18] VITALS: Ht 188 cm; Wt 90.5 kg
[2024-04-18 08:51] VITALS: BP 115/80
[2024-04-18 09:11] LABS: BASOPHILS ABSOLUTE AUTO 0.02 K/mm3 (0.00-0.23); BASOPHILS PERCENT AUTO 1 % (0-2); EOSINOPHILS ABSOLUTE AUTO 0.06 K/mm3 (0.00-0.68); EOSINOPHILS PERCENT AUTO 2 % (0-6); Hematocrit 44.8 % (37.0-53.0); Hemoglobin 14.4 g/dL (13.5-17.5); IMMATURE GRAN ABSOLUTE AUTO 0.01 K/mm3 (0.00-0.10); IMMATURE GRAN PERCENT AUTO 0 % (0-1); LYMPHOCYTES ABSOLUTE AUTO 1.18 K/mm3 (0.84-5.20); LYMPHOCYTES PERCENT AUTO 32 % (21-46); MONOCYTES ABSOLUTE AUTO 0.26 K/mm3 (0.16-1.47); MONOCYTES PERCENT AUTO 7 % (4-13); Mean Corpuscular HGB 25.5 pg (26.0-34.0); Mean Corpuscular HGB Conc 32.1 g/dL (31.5-36.5); Mean Corpuscular Volume 79 fL (80-100); NEUTROPHILS ABSOLUTE AUTO 2.16 K/mm3 (1.96-9.15); NEUTROPHILS PERCENT AUTO 59 % (41-73); Platelet Count 112 K/mm3 (150-400); RDW Coefficient Variation 16.7 % (11.7-14.2); Red Blood Cell Count 5.64 M/mm3 (4.30-5.90); White Blood Cell Count 3.69 K/mm3 (4.00-11.30)
[2024-04-18 09:22] LABS: International Normalized Ratio 1.02; Prothrombin Time Results 10.9 Sec (9.7-11.5)
[2024-04-18] MEDS ORDERED: NS 250 ML IV ONE ×2 (09:25→09:59)
[2024-04-18] MEDS ORDERED: Heparin Sodium 1000 Units/ML 10ML MDV ONE (09:25)
[2024-04-18 09:46] LABS: Bun/Creatinine Ratio 2.6 (12.0-20.0); Calcium, Blood 7.8 mg/dL (8.5-10.1); Creatinine, Blood 16.4 mg/dL (0.60-1.20); Potassium, Blood 4.7 mmol/L (3.5-5.5)
[2024-04-18] MEDS ORDERED: Midazolam HCl 1MG / ML 2ML Vial ONE (09:59)
[2024-04-18] MEDS ORDERED: FentaNYL Citrate 50 MCG/ML 2 ML Injection ONE (09:59)
[2024-04-18] MEDS ORDERED: NS 100 ML IV ONE (10:00)
[2024-04-18] MEDS ORDERED: CeFAZolin Sodium 2,000 MG VIAL ONE (10:00)
[2024-04-18] MEDS ORDERED: Heparin Sodium 10,000 Units/ML 1ML MDV ONE (10:20)
[2024-04-18 10:41] VITALS: BP 123/79
[2024-04-18 10:45] VITALS: BP 126/82
[2024-04-18 11:00] VITALS: BP 123/70
[2024-04-18 11:15] VITALS: BP 120/76
[2024-04-18 11:30] VITALS: BP 122/85
--- NOTE | 2024-04-18 11:55 | NUR ---
PT BACK FROM PROCEDURE AT 1040. PT SLEEPING, AROUSES TO NAME, DENIES COMPLAINTS. PT'S AT BEDSIDE. 1145- VERBAL AND WRITTEN DC INFORMATION GIVEN TO PT AND PT'S WITH CLEAR UNDERSTANDING. DRSG C/D/I TO LEFT GROIN. PT HAS HD SCHEDULED FOR TOMORROW. CRITICAL CREATINE LAB GIVEN TO DR GROVES PRIOR TO PROCEDURE. PT DC'D HOME IN STABLE CONDITION AT 1155. CRACKERS AND JUICE GIVEN. PT ESCORTED OUT VIA WHEELCHAIR IN CARE OF PT'S .
--- NOTE | 2024-04-18 15:18 | NUR ---
Patient back to unit after discharge per Dr. Damon for oozing to left femoral vein/permacath insertion site. Pt states oozing started shortly after arriving home. Pt placed supine on bed and slow continous ooze noted. Pressure held for 10min without improvement. Dr damon at bedside and placed one stitch to insertion site, ooze stopped at that time. Pressure drsg placed over insertion site by Dr. Damon. Area monitored for 15min without further bleeding. Pt discahrged home. Pt's instructed by Dr. Damon that she could hold pressure if oozing resumed or come back through the ER.
== END 2024-04-18 12:27 | disposition home or self-care (01) ==
LOC: MHTC 08:26
PROVIDERS: Student in an Organized Health Care Education/Training Program
DX: I12.0 Hypertensive chronic kidney disease with stage 5 chronic kidney disease or end stage renal disease (principal); N18.6 End stage renal disease; T82.9XXA Unspecified complication of cardiac and vascular prosthetic device, implant and graft, initial encounter; G47.33 Obstructive sleep apnea (adult) (pediatric); N25.81 Secondary hyperparathyroidism of renal origin; Z87.891 Personal history of nicotine dependence; Z88.8 Allergy status to other drugs, medicaments and biological substances; Z90.89 Acquired absence of other organs; Z91.018 Allergy to other foods; Z91.030 Bee allergy status; Z99.89 Dependence on other enabling machines and devices; Z98.890 Other specified postprocedural states; Z79.899 Other long term (current) drug therapy
CPT/HCPCS: 80048; 85025; 85610; 99152; C1750; C1769; J0690; J1644; J2250; J3010; J7050; Q9967

== ENCOUNTER 2024-07-04 08:35 | Day surgery (SDC) | payer MEDICARE, OTHER ==
[~2024-07-04] VITALS: Ht 188 cm; Wt 95.3 kg
[2024-07-04 09:07] VITALS: BP 131/87
[2024-07-04 09:14] VITALS: BP 126/79
[2024-07-04 09:15] VITALS: BP 126/79
[2024-07-04 09:30] VITALS: BP 121/92
[2024-07-04 09:55] LABS: BASOPHILS ABSOLUTE AUTO 0.02 K/mm3 (0.00-0.23); BASOPHILS PERCENT AUTO 1 % (0-2); EOSINOPHILS ABSOLUTE AUTO 0.08 K/mm3 (0.00-0.68); EOSINOPHILS PERCENT AUTO 2 % (0-6); Hematocrit 42.6 % (37.0-53.0); Hemoglobin 13.5 g/dL (13.5-17.5); IMMATURE GRAN ABSOLUTE AUTO 0.01 K/mm3 (0.00-0.10); IMMATURE GRAN PERCENT AUTO 0 % (0-1); LYMPHOCYTES PERCENT AUTO 29 % (21-46); MONOCYTES ABSOLUTE AUTO 0.24 K/mm3 (0.16-1.47); MONOCYTES PERCENT AUTO 6 % (4-13); Mean Corpuscular HGB 24.4 pg (26.0-34.0); Mean Corpuscular HGB Conc 31.7 g/dL (31.5-36.5); Mean Corpuscular Volume 77 fL (80-100); NEUTROPHILS ABSOLUTE AUTO 2.56 K/mm3 (1.96-9.15); NEUTROPHILS PERCENT AUTO 62 % (41-73); Platelet Count 127 K/mm3 (150-400); RDW Coefficient Variation 18.6 % (11.7-14.2); RDW Standard Deviation 46.4 fL (35.1-46.3); Red Blood Cell Count 5.54 M/mm3 (4.30-5.90); White Blood Cell Count 4.11 K/mm3 (4.00-11.30)
[2024-07-04 10:22] LABS: Bun/Creatinine Ratio 2.1 (12.0-20.0); Calcium, Blood 7.4 mg/dL (8.5-10.1); Creatinine, Blood 14.1 mg/dL (0.60-1.20); Potassium, Blood 5.3 mmol/L (3.5-5.5)
[2024-07-04] MEDS ORDERED: Heparin Sodium 1000 Units/ML 10ML MDV ONE (11:05)
[2024-07-04] MEDS ORDERED: NS 250 ML IV ONE (11:06)
[2024-07-04] MEDS ORDERED: NS 500 ML IV ONE (11:17)
[2024-07-04] MEDS ORDERED: Midazolam HCl 1MG / ML 2ML Vial ONE (11:23)
[2024-07-04] MEDS ORDERED: FentaNYL Citrate 50 MCG/ML 2 ML Injection ONE (11:24)
[2024-07-04] MEDS ORDERED: CeFAZolin Sodium 2,000 MG VIAL ONE (12:01)
[2024-07-04] MEDS ORDERED: NS 50 ML IV ONE (12:01)
[2024-07-04] MEDS ORDERED: Heparin Sodium 10,000 Units/ML 1ML MDV ONE ×2 (12:08)
--- NOTE | 2024-07-04 12:25 | NUR ---
PATIENT ARRIVED BACK TO RECOVERY ROOM IN RECLINER. VSS ON RA. CATHETER IN PLACE. SITE C/D/I. PATIENT RESTING COMFORTABLY.
[2024-07-04 12:32] VITALS: BP 115/78
[2024-07-04 12:46] VITALS: BP 136/50
--- NOTE | 2024-07-04 13:00 | NUR ---
VERBAL DISCHARGE INSTRUCTIONS REVIEWED WITH PATIENT. ALL QUESTIONS WERE ANSWERED. LEFT GROIN CATHETER SITE C.D.I SOFT/NONTENDER, NO EVIDENCE OF BLEEDING. VSS ON RA. PATIENT TOLERATING PO INTAKE WELL.
--- NOTE | 2024-07-04 13:13 | NUR ---
ASSUMED CARE, PATIENT AWAITING RIDE HOME, SITE INTACT, IV IN PLACE, NO ACUTE CONCERNS.
--- NOTE | 2024-07-04 13:28 | NUR ---
IV REMOVED, PATIENT ADVISED ON CARE AND WILL CALL/RETURN IF CONCERNS, DENIES CONCERNS AT D/C, LEFT AMBULATORY AND RIDE WAITING FOR PATIENT PER PATIENT.
== END 2024-07-04 13:25 | disposition home or self-care (01) ==
LOC: MHTC 08:35
PROVIDERS: Student in an Organized Health Care Education/Training Program
DX: I12.0 Hypertensive chronic kidney disease with stage 5 chronic kidney disease or end stage renal disease (principal); N18.6 End stage renal disease; G47.33 Obstructive sleep apnea (adult) (pediatric); N25.81 Secondary hyperparathyroidism of renal origin; Z79.82 Long term (current) use of aspirin; Z87.891 Personal history of nicotine dependence; Z88.8 Allergy status to other drugs, medicaments and biological substances; Z91.030 Bee allergy status; Z99.89 Dependence on other enabling machines and devices
CPT/HCPCS: 36581; 77001; 80048; 85025; 99152; 99153; C1750; C1769; J0690; J1644; J2250; J3010; J7040; J7050; Q9967

== ENCOUNTER 2024-07-21 05:31 | Emergency (ER) | payer MEDICARE, OTHER ==
[~2024-07-21] VITALS: Ht 188 cm; Wt 90.0 kg
[2024-07-21] MEDS ORDERED: Ondansetron HCl 2 MG / ML 2ML Vial IV ONE (06:20)
[2024-07-21] MEDS ORDERED: HYDROmorphone HCl/Pf 1MG SYR IV ONE ×2 (06:20→07:35)
[2024-07-21 06:23] LABS: BASOPHILS ABSOLUTE AUTO 0.02 K/mm3 (0.00-0.23); BASOPHILS PERCENT AUTO 1 % (0-2); EOSINOPHILS ABSOLUTE AUTO 0.13 K/mm3 (0.00-0.68); EOSINOPHILS PERCENT AUTO 3 % (0-6); Hematocrit 37.4 % (37.0-53.0); IMMATURE GRAN ABSOLUTE AUTO 0.01 K/mm3 (0.00-0.10); IMMATURE GRAN PERCENT AUTO 0 % (0-1); LYMPHOCYTES ABSOLUTE AUTO 0.85 K/mm3 (0.84-5.20); LYMPHOCYTES PERCENT AUTO 21 % (21-46); MONOCYTES ABSOLUTE AUTO 0.45 K/mm3 (0.16-1.47); MONOCYTES PERCENT AUTO 11 % (4-13); Mean Corpuscular HGB 25.9 pg (26.0-34.0); Mean Corpuscular HGB Conc 32.1 g/dL (31.5-36.5); Mean Corpuscular Volume 81 fL (80-100); NEUTROPHILS ABSOLUTE AUTO 2.69 K/mm3 (1.96-9.15); NEUTROPHILS PERCENT AUTO 65 % (41-73); Platelet Count 87 K/mm3 (150-400); RDW Coefficient Variation 22.2 % (11.7-14.2); RDW Standard Deviation 62.3 fL (35.1-46.3); Red Blood Cell Count 4.63 M/mm3 (4.30-5.90); White Blood Cell Count 4.15 K/mm3 (4.00-11.30)
[2024-07-21 06:52] LABS: Alanine Aminotransfer (ALT/SGP <6 U/L (12-78); Albumin, Blood 3.5 g/dL (3.4-5.0); Albumin/Globulin Ratio 0.9 (0.8-1.8); Alk Phos 123 U/L (50-136); Anion Gap 14 mmol/L (3-11); Aspartate Aminotrans (AST/SGOT 13 U/L (12-37); Bilirubin, Total 0.6 mg/dL (0.1-1.0); Blood Urea Nitrogen 38 mg/dL (8-24); Bun/Creatinine Ratio 3.3 (12.0-20.0); CO2, Blood 23 mmol/L (21-32); Calcium, Blood 7.7 mg/dL (8.5-10.1); Chloride, Blood 102 mmol/L (98-108); Globulin, Blood 3.8 g/dL (2.2-4.0); Glomerular Filtration Rate 5 (60-); Glucose, Blood 290 mg/dL (70-99); Potassium, Blood 3.7 mmol/L (3.5-5.5); Sodium, Blood 135 mmol/L (136-145); Total Protein, Blood 7.3 g/dL (6.4-8.2)
[2024-07-21 08:51] VITALS: BP 105/70
== END 2024-07-21 08:52 | disposition home or self-care (01) ==
LOC: ER 05:31
PROVIDERS: Emergency Medicine
DX: M54.2 Cervicalgia (principal); G89.18 Other acute postprocedural pain; E11.22 Type 2 diabetes mellitus with diabetic chronic kidney disease; N18.6 End stage renal disease; Z99.2 Dependence on renal dialysis; Z91.018 Allergy to other foods; Z88.1 Allergy status to other antibiotic agents; Z88.2 Allergy status to sulfonamides; Z88.5 Allergy status to narcotic agent; Z79.899 Other long term (current) drug therapy; Z79.4 Long term (current) use of insulin
CPT/HCPCS: 70491; 71045; 80053; 85025; 96374-59; 96375; 96376; 99284-25; J1171; J2405; Q9967

== ENCOUNTER → 2025-01-25 | Outpatient (CLI) | payer MEDICARE, OTHER ==
[2025-01-25 20:03] LABS: Prostate Specific Antigen 0.854 ng/mL (0.000-4.000)
== END ==
LOC: LAB 17:24 → LAB SHORT 17:24
PROVIDERS: Nurse Practitioner Family
DX: Z12.5 Encounter for screening for malignant neoplasm of prostate (principal)
CPT/HCPCS: G0103